=== PATIENT | female | born 1990 | race Caucasian/White ===

== ENCOUNTER 2016-02-24 06:29 | Emergency (ER) | payer MEDICAID ==
--- NOTE | 2016-02-24 06:44 | ER Document Report ---
ED GI/ - General Chief Complaint: Urinary Frequency Stated Complaint: URINARY SYMPTOMS Notes: The patient is a 25 showed female who presents with 1 day of left flank pain. She said she had similar symptoms when she last had a UTI and pyelonephritis. She says the pain is not affected by movement and she has no dysuria or hematuria. She has never had a kidney stone. She denies nausea, vomiting, fevers, abdominal pain TRAVEL OUTSIDE OF THE [place] IN LAST 30 DAYS: No - Related Data Allergies/Adverse Reactions: No Known Allergies Allergy (Verified 02/24/16 06:32) Past Medical History - General Information source: Patient - Social History Smoking Status: Unknown if Ever Smoked Family History: Reviewed & Not Pertinent Past Surgical History: Reports: Hx Tubal Ligation - Immunizations Hx Diphtheria, Pertussis, Tetanus Vaccination: Yes - 2010 Review of Systems - Review of Systems Notes: REVIEW OF SYSTEMS: CONSTITUTIONAL: -fevers, -chills EENT: -eye pain, -difficulty swallowing, -nasal congestion CARDIOVASCULAR:-chest pain, -syncope. RESPIRATORY: -cough, -SOB GASTROINTESTINAL: -abdominal pain, - nausea, -vomiting, -diarrhea GENITOURINARY: +dysuria, -hematuria MUSCULOSKELETAL: -back pain, -neck pain, _left flank pain SKIN: -rash or skin lesions. HEMATOLOGIC: -easy bruising or bleeding. LYMPHATIC: -swollen, enlarged glands. NEUROLOGICAL: -altered mental status or loss of consciousness, -headache, - neurologic symptoms PSYCHIATRIC: -anxiety, -depression. ALL OTHER SYSTEMS REVIEWED AND NEGATIVE. Physical Exam - Vital signs Vitals: Temp Pulse Resp BP Pulse Ox 97.7 F 81 16 132/69 H 100 02/24/16 06:33 02/24/16 06:33 02/24/16 06:33 02/24/16 06:33 02/24/16 06:33 - Notes Notes: PHYSICAL EXAMINATION: GENERAL: Moderate distress, well-nourished. HEAD: Atraumatic, normocephalic. EYES: Pupils equal round and reactive to light, extraocular movements intact, sclera anicteric, conjunctiva are normal. ENT: nares patent, oropharynx clear without exudates. Moist mucous membranes. NECK: Normal range of motion, supple without lymphadenopathy LUNGS: Breath sounds clear to auscultation bilaterally and equal. No wheezes rales or rhonchi. HEART: Regular rate and rhythm without murmurs ABDOMEN: Soft, nontender, normoactive bowel sounds. No guarding, no rebound. No masses appreciated. No CVA tenderness. EXTREMITIES: Normal range of motion, no pitting or edema. No cyanosis. NEUROLOGICAL: Cranial nerves grossly intact. Normal speech, normal gait. Normal sensory, motor, and reflex exams. PSYCH: Normal mood, normal affect. SKIN: Warm, Dry, normal turgor, no rashes or lesions noted. Course - Re-evaluation Re-evalutation: Patient has a 6 cm stone in the distal left ureter with moderate obstructive uropathy. No evidence of infection on urinalysis. Patient tolerating p.o. and her pain and nausea is under control. Because the stone is between 6 and 10 mm , will send home with Flomax, pain control and antinausea medicine with follow- up at urology in 1 week. Given strict return precautions and she understands. - Vital Signs Vital signs: Temp Pulse Resp BP Pulse Ox 97.7 F 81 16 132/69 H 100 02/24/16 06:33 02/24/16 06:33 02/24/16 06:33 02/24/16 06:33 02/24/16 06:33 - Laboratory Laboratory results interpreted by me: 02/24/16 06:55 Urine Blood SMALL H - Diagnostic Test Radiology reviewed: Image reviewed, Reports reviewed Radiology results interpreted by me: 6 mm calculus in the distal left ureter with moderate obstructive uropathy. Small nonobstructing calyceal calculi in the right kidney. No other significant or acute processes in the abdomen or pelvis. Discharge - Discharge Clinical Impression: Kidney stone on left side Condition: Good Disposition: HOME, SELF-CARE Additional Instructions: Your CAT scan shows a 6 mm stone on the left side. Take the Flomax and use Motrin every 6 hours and Percocet every 4 hours for severe pain. He may also use the Zofran to help with any nausea and vomiting. Return to the ER if you notice fevers or your unable to keep her medications down. Follow-up with the urologist in 1 week to recheck your symptoms. KIDNEY STONE: You are passing or have passed a kidney stone. These stones are usually due to increased calcium or uric acid concentrations in your urine. Stones within the kidney itself are not painful. The pain occurs as the stone leaves the kidney to pass down the long tube, called the ureter, leading to the bladder. If the stone is small, it will usually pass by itself. Most patients can pass the stone at home. You will usually receive medications for pain, nausea or vomiting, and sometimes a medication to assist in passing the kidney stone. However, if the pain is very severe or if vomiting prevents you from taking oral pain medications, you may need to return for further treatment. Drink three or four quarts of fluids per day. You will be given pain medication (if needed) and urine strainers. Strain all your urine to see if the stone passes. If your doctor has asked you to bring the stone in for analysis, return with the stone once it has passed. Return if pain or vomiting become severe, if you develop a high fever, if you are unable to pass your urine, or if other unusual symptoms occur. TORADOL INJECTION: You have been given an injection of ketorolac tromethamine (Toradol). This is an excellent, safe drug for pain control. It also has potent antiinflammatory action. You should have significant pain relief within about one hour. Toradol is not addicting and is non-sedating. It does not interfere with driving or work. Call or return if you develop itching, hives, shortness of breath, or rash. PAIN MEDICATION INJECTION: You have received an injection of a pain medication. You should experience significant pain relief within 45 minutes. This drug is a narcotic - - it will impair your judgement, slow your reaction time and make you sleepy ( as well as relieve your pain). Narcotics also can cause nausea. You should not drive, work with machinery, or perform any task requiring mental alertness until all effects of the medication are gone -- six to eight hours. Do not take any alcohol, or sedatives, and do not take any other medication without checking with your physician. ANTINAUSEA MEDICATION: You have been given a medication to suppress nausea and vomiting. This type of medication can be given as a shot, pill, or suppository. It will usually last for many hours. Pills and shots usually last six to eight hours, suppositories last about 12 hours. For the typical illness, only one or two doses of the medication may be necessary. Mild lightheadedness may occur. This type of medicine can cause drowsiness. Do not drive or operate dangerous machinery while under its influence. Do not mix with alcohol. See your doctor at once if you have muscle spasms or tightness, or uncontrollable motions (particularly of the neck, mouth, or jaw). Persistent vomiting or severe lightheadedness should also be evaluated by the physician. ORAL NARCOTIC MEDICATION: You have been given a prescription for pain control. This medication is a narcotic. It's best taken with food, as nausea can result if taken on an empty stomach. Don't operate machinery or drive within six hours of taking this medication. Do not combine this medicine with alcohol, or with any medication which can cause sedation (such as cold tablets or sleeping pills) unless you get permission from the physician. Narcotics tend to cause constipation. If possible, drink plenty of fluids and eat a diet high in fiber and fruits. Please be aware that prescription narcotics also have the potential for abuse. People become addicted to these medications because of the general sense of wellbeing that they induce. This feeling along with a significant reduction in tension, anxiety, and aggression provides a stimulating seductive quality to these drugs. Once your pain is under control, we encourage you to discard your unused narcotics. FLOMAX (tamsulosin): Flomax is a medicine that shrinks the prostate gland. It helps relieve symptoms of benign prostatic hypertrophy, such as frequent urination, weak stream, and inadequate emptying. It has been shown to dilate the ureter (tube leading from the kidney to the bladder) and help in passing kidney stones Flomax usually causes no side effects. You may notice slight tiredness and dizziness for a few days. Some patients develop nasal congestion. Rarely, impotence can occur. If the symptoms are bothersome and don't improve with continued use, call your doctor. Contact your doctor or return if you have fainting spells, severe weakness or dizziness, shortness of breath, or rash. FOLLOW-UP CARE: If you have been referred to a physician for follow-up care, call the physician s office for an appointment as you were instructed or within the next two days. If you experience worsening or a significant change in your symptoms, notify the physician immediately or return to the Emergency Department at any time for re-evaluation. Prescriptions: Ondansetron HCl [Zofran 4 mg Tablet] 1 - 2 tab PO Q4H PRN #14 tablet PRN Reason: Oxycodone HCl/Acetaminophen [Percocet 5-325 mg Tablet] 1 tab PO Q4H PRN #21 tab PRN Reason: Tamsulosin HCl [Flomax 0.4 mg Cap.sr] 0.4 mg PO DAILY #7 cap.sr.24h
[2016-02-24] MEDS ORDERED: ACETAMINOPHEN WITH CODEINE #3 TABLET PO ONE (06:53)
[2016-02-24] MEDS ORDERED: KETOROLAC TROMETHAMINE 10 MG TABLET PO ONE (06:53)
[2016-02-24] MEDS ORDERED: KETOROLAC TROMETHAMINE 60 MG/2 ML SDV IM ONE (07:08)
[2016-02-24 07:17] LABS: APPEARANCE,URINE SLIGHTLY-CLOUDY; BILIRUBIN,URINE NEGATIVE (NEGATIVE); GLUCOSE, URINE NEGATIVE (NEGATIVE); KETONES,URINE NEGATIVE (NEGATIVE); LEUKOCYTE ESTERASE,URINE NEGATIVE (NEGATIVE); NITRITE,URINE NEGATIVE (NEGATIVE); PROTEIN,URINE NEGATIVE (NEGATIVE); URINE SPECIFIC GRAVITY 1.016; UROBILINOGEN,URINE NEGATIVE mg/dL (<2.0)
[2016-02-24] MEDS ORDERED: MORPHINE SULFATE 10 MG/ML INJ IM ONE (09:13)
[2016-02-24 09:31] VITALS: BP 114/65
== END 2016-02-24 09:31 | disposition home or self-care (01) ==
LOC: ER 06:29
DX: N20.0 Calculus of kidney (principal); R35.0 Frequency of micturition
CPT/HCPCS: 99284; 96372; 81025; 81001; 74176; J1885; J2270

== ENCOUNTER 2016-03-01 03:06 | Inpatient (IN) | payer MEDICAID ==
[2016-03-01] MEDS ORDERED: NORMAL SALINE 1000 ML 1,000 ML IV ONE ×2 (03:32→06:06)
[2016-03-01] MEDS ORDERED: KETOROLAC TROMETHAMINE INJ/PF 30 MG/1 ML SDV IV ONE (03:33)
[2016-03-01] MEDS ORDERED: ONDANSETRON HCL INJ/PF 4 MG/2 ML SDV IV ONE ×2 (03:33→05:55)
[2016-03-01 04:14] LABS: ABSOLUTE EOSINOPHILS # (AUTO) 0.1 10^3/uL (0.0-0.6); ABSOLUTE LYMPHOCYTES (AUTO) 1.5 10^3/uL (0.5-4.7); ABSOLUTE MONOCYTES (AUTO) 0.3 10^3/uL (0.1-1.4); ABSOLUTE NEUT (AUTO) 2.8 10^3/uL (1.7-8.2); BASOPHILS % (AUTO) 0.4 % (0-2); EOSINOPHILS % (AUTO) 2.5 % (0-6); HEMATOCRIT 39.4 % (36.0-47.0); HEMOGLOBIN 12.8 g/dL (12.0-15.5); LYMPHOCYTES % (AUTO) 31.8 % (13-45); MEAN CORPUSCULAR HEMOGLOBIN 27.9 pg (27.0-33.4); MEAN CORPUSCULAR HGB CONC 32.6 g/dL (32.0-36.0); MEAN CORPUSCULAR VOLUME 86 fl (80-97); MONOCYTES % (AUTO) 7.2 % (3-13); SEGMENTED NEUTROPHILS % (AUTO) 58.1 % (42-78); WHITE BLOOD COUNT 4.8 10^3/uL (4.0-10.5)
[2016-03-01 04:27] LABS: ANION GAP 10 (5-19); BLOOD UREA NITROGEN 13 mg/dL (7-20); CALCIUM 9.7 mg/dL (8.4-10.2); CARBON DIOXIDE 31 mmol/L (22-30); CHLORIDE 102 mmol/L (98-107); CREATININE RESULT 0.75 mg/dL (0.52-1.25); GLUCOSE 98 mg/dL (75-110); POTASSIUM 4.1 mmol/L (3.6-5.0); SODIUM 142.5 mmol/L (137-145)
[2016-03-01] MEDS ORDERED: OXYCODONE-ACETAMINOPHEN 5-325 MG TABLET PO ONE (04:30)
[2016-03-01 05:31] LABS: AMORPHOUS SEDIMENT,URINE TRACE /HPF; APPEARANCE,URINE CLOUDY; BILIRUBIN,URINE NEGATIVE (NEGATIVE); GLUCOSE, URINE NEGATIVE (NEGATIVE); KETONES,URINE NEGATIVE (NEGATIVE); LEUKOCYTE ESTERASE,URINE NEGATIVE (NEGATIVE); NITRITE,URINE NEGATIVE (NEGATIVE); PROTEIN,URINE NEGATIVE (NEGATIVE); URINE SPECIFIC GRAVITY 1.019; UROBILINOGEN,URINE NEGATIVE mg/dL (<2.0)
[2016-03-01] MEDS ORDERED: MORPHINE SULFATE 10 MG/ML INJ IV ONE (05:55)
--- NOTE | 2016-03-01 05:55 | ER Document Report ---
ED General - General Chief Complaint: Flank Pain Stated Complaint: FLANK PAIN TRAVEL OUTSIDE OF THE [place] IN LAST 30 DAYS: No - HPI Patient complains to provider of: left flank Notes: Patient was diagnosed a 6 mm left distal kidney stone 5-7 days ago started on pain medication and Flomax states that she is not yet passed the stone and pain has increased therefore came to ER for further evaluation. Denies fevers chills. - Related Data Allergies/Adverse Reactions: No Known Allergies Allergy (Verified 02/24/16 06:32) Past Medical History - Social History Smoking Status: Never Smoker Chew tobacco use (# tins/day): No Drug Abuse: None Family History: Reviewed & Not Pertinent Patient has suicidal ideation: No Patient has homicidal ideation: No Renal/ Medical History: Reports: Hx Kidney Stones. Denies: Hx Peritoneal Dialysis Past Surgical History: Reports: Hx Tubal Ligation - Immunizations Hx Diphtheria, Pertussis, Tetanus Vaccination: Yes - 2010 Review of Systems - Review of Systems Constitutional: No symptoms reported EENT: No symptoms reported Cardiovascular: No symptoms reported Respiratory: No symptoms reported Gastrointestinal: No symptoms reported Genitourinary: Flank pain Female Genitourinary: No symptoms reported Musculoskeletal: No symptoms reported Skin: No symptoms reported Hematologic/Lymphatic: No symptoms reported Neurological/Psychological: No symptoms reported -: Yes All other systems reviewed and negative Physical Exam - Vital signs Vitals: Temp Pulse Resp BP Pulse Ox 97.5 F 107 H 20 143/90 H 100 03/01/16 03:11 03/01/16 03:11 03/01/16 03:11 03/01/16 03:11 03/01/16 03:11 Interpretation: Normal - General General appearance: Appears well, Alert - HEENT Head: Normocephalic, Atraumatic Eyes: Normal Pupils: PERRL - Respiratory Respiratory status: No respiratory distress Chest status: Nontender Breath sounds: Normal Chest palpation: Normal - Cardiovascular Rhythm: Regular Heart sounds: Normal auscultation Murmur: No - Abdominal Inspection: Normal Distension: No distension Bowel sounds: Normal Tenderness: Nontender Organomegaly: No organomegaly - Back Back: Normal, Nontender - Extremities General upper extremity: Normal inspection, Nontender, Normal color, Normal ROM , Normal temperature General lower extremity: Normal inspection, Nontender, Normal color, Normal ROM , Normal temperature, Normal weight bearing. No: Nu's sign - Neurological Neuro grossly intact: Yes Cognition: Normal Orientation: AAOx4 Malia Coma Scale Eye Opening: Spontaneous Malia Coma Scale Verbal: Oriented Malia Coma Scale Motor: Obeys Commands Hitchins Coma Scale Total: 15 Speech: Normal Motor strength normal: LUE, RUE, LLE, RLE Sensory: Normal - Psychological Associated symptoms: Normal affect, Normal mood - Skin Skin Temperature: Warm Skin Moisture: Dry Skin Color: Normal Course - Re-evaluation Re-evalutation: 03/01/16 05:35 Discussed KUB and previous CT findings with urology on-call currently waiting call back 03/01/16 06:11 Discuss with urology will have the patient good deal of her stent placement. Ancef IV fluids and nothing by mouth status ordered for patient. - Vital Signs Vital signs: Temp Pulse Resp BP Pulse Ox 97.5 F 97 16 116/57 L 100 03/01/16 03:11 03/01/16 04:46 03/01/16 04:46 03/01/16 04:46 03/01/16 04:46 - Laboratory Result Diagrams: 03/01/16 03:52 03/01/16 03:52 Laboratory results interpreted by me: 03/01/16 03/01/16 03:52 04:04 Carbon Dioxide 31 H Urine Ascorbic Acid 40 H Discharge - Discharge Clinical Impression: Kidney stone on left side Referrals: JIMMY THAYER MD [Primary Care Provider] - Follow up as needed
[2016-03-01] MEDS ORDERED: CEFAZOLIN 1 GM/D5W RTU 50 ML IV ONE (06:07)
[2016-03-01] MEDS ORDERED: FENTANYL CITRATE INJ/PF 100 MCG/2 ML AMPUL ONE ×3 (08:25→09:41)
[2016-03-01] MEDS ORDERED: PROPOFOL INJ 200 MG/20 ML VIAL IV ONE (08:26)
[2016-03-01] MEDS ORDERED: MIDAZOLAM 2 MG/2 ML INJ ONE (08:26)
[2016-03-01] MEDS ORDERED: LIDOCAINE 2% URO-JET 5 ML KIT ONE (08:37)
[2016-03-01] MEDS ORDERED: KETOROLAC TROMETHAMINE 60 MG/2 ML SDV ONE (08:51)
[2016-03-01] MEDS ORDERED: FENTANYL CITRATE INJ/PF 100 MCG/2 ML AMPUL IV PRN ×3 (09:32)
[2016-03-01] MEDS ORDERED: PROMETHAZINE HCL INJ 25 MG/1 ML VIAL IV PRN (09:32)
[2016-03-01] MEDS ORDERED: ONDANSETRON HCL INJ/PF 4 MG/2 ML SDV IV PRN (09:32)
--- NOTE | 2016-03-01 09:58 | HISTORY AND PHYSICAL E ---
History and Physical NAME: EMILY BLACK : 1990 AGE: 25Y ADMITTED: 03/01/2016 ROOM: ED12 CHIEF COMPLAINT: Left flank pain. HISTORY OF THE PRESENT ILLNESS: The patient is a 25-year-old lady who was seen in the emergency room 1 week ago for a 6-mm distal left ureteral calculus with obstruction. She was started on Flomax and given a prescription for Macrodantin, Zofran, and Percocet. She continued to have pain and presented again at the emergency room this morning. A KUB showed that the distal stone had not moved. The stone was located approximately 2 cm proximal to the UVJ. Her urine today did not appear infected. She did not have any fever or chills. She was having intractable pain, though. Various options for treatment: Admission with IV pain medicine or cystoscopy with insertion of a left ureteral stent and then discharge for further followup as an outpatient with left ureteroscopy with laser lithotripsy and removal of her stent were the 2 options that were discussed. Observation was not a viable option because she was having intractable pain. She elected to proceed with placement of a left ureteral stent. I discussed the potential complications of placing a stent which included but were not limited to bleeding, infection, failure to cure the problem, need for additional surgery, injury to the ureter, spasms requiring medication. She wished to proceed. Her social history, family history, review of systems, and past medical history are listed in the patient's ER chart, which I have reviewed and will not recount here. She has 3 children. ALLERGIES: She does have a reaction to ACETAMINOPHEN and develops itching when she takes this. CURRENT MEDICATIONS: She takes vitamins. PHYSICAL EXAMINATION: GENERAL: The patient is a 25-year-old white female in obvious distress. She is alert, oriented x3 with appropriate affect. HEAD, EYES, EARS, NOSE, THROAT, AND NECK: No scleral icterus is noted. Extraocular movements are intact. No facial lesions are noted. No lesions on the nose or external ear. Trachea is midline. CHEST: Clear to auscultation with normal respirations. HEART: Regular rhythm without murmur or gallop. GENITALIA: Appear normal. EXTREMITIES: Full range of motion. NEUROLOGIC: Intact. IMPRESSION: Impacted left distal ureteral stone. PLAN: Cystoscopy with insertion of left ureteral stent and then discharge for followup as an outpatient. DICTATING PHYSICIAN: NICOLETTE ZAVALA M.D. [id number] PHY#: [id number] ID: [id number] JOB#: [id number] ACCT: [id number] cc:Fany JACINTO M.D. >
--- NOTE | 2016-03-01 10:18 | OPERATIVE REPORT E ---
Operative Report NAME: MEILY BLACK : 1990 AGE: 25Y DATE OF SURGERY: 03/01/2016 ROOM: ED12 PREOPERATIVE DIAGNOSIS: IMPACTED LEFT DISTAL URETERAL CALCULUS. POSTOPERATIVE DIAGNOSIS: IMPACTED LEFT DISTAL URETERAL CALCULUS. OPERATION: Cystoscopy with insertion of 22 cm x 6-Belarusian Double-J catheter. SURGEON: NICOLETTE ZAVALA M.D. ROUTE PROCESS ADMINISTRATOR: None. SPECIMENS: None. ESTIMATED BLOOD LOSS: None. COMPLICATIONS: None. ANESTHESIA: Mac. INDICATIONS: The patient is a 25-year-old female with an impacted distal 6-mm left ureteral calculus. The various options for treatment as well as risks and benefits were discussed. A laser is not available at this time, therefore, she chose to proceed with cystoscopy and insertion of a left ureteral stent. She will follow up with Dr. Woodward as an outpatient to arrange left uteroscopy with laser lithotripsy and removal of her stent. PROCEDURE: After the patient was identified in the preop holding area, she was brought to the operating room. A timeout was performed where the correct patient, side of procedure and procedure was confirmed. Following this, she was given sedation. She was next carefully positioned in a dorsolithotomy position. All pressure points were padded. She was then prepped and draped in a routine sterile manner. A #23 obturator and sheath was inserted into the bladder. A panendoscope was used to examine the bladder which appeared normal. Attempt was made to pass a catheter beyond this stone which was not successful initially. A guidewire was threaded up the left ureter after which a 5-Belarusian open-ended catheter was used to manipulate this stone slightly more proximally and then it was possible to pass the catheter beyond the stone. Next, a 22 cm x 6-Belarusian Double-J catheter was positioned under fluoroscopic guidance with coiling of the catheter in the renal pelvis and bladder. The bladder was then emptied and the patient was returned to recovery room having tolerated this procedure well. PLAN: Followup with Dr. Vernon Woodward's office to arrange for left uteroscopy with laser lithotripsy and removal of a left ureteral stent. DICTATING PHYSICIAN: NICOLETTE ZAVALA M.D. [id number] Y#: [id number] ID: [id number] JOB#: [id number] ACCT: [id number] cc:Fany JACINTO M.D. >
[2016-03-01] MEDS ORDERED: OXYCODONE HCL IR 5 MG TABLET ONE (11:01)
[2016-03-01] MEDS ORDERED: ASPIRIN 325 MG TABLET ONE (11:01)
[2016-03-01] MEDS ORDERED: NORMAL SALINE 1000 ML 1,000 ML IV PRN (11:02)
[2016-03-01] MEDS ORDERED: ASPIRIN 325 MG TABLET PO ONE (11:30)
[2016-03-01] MEDS ORDERED: OXYCODONE HCL IR 5 MG TABLET PO ONE (11:30)
[2016-03-01 12:58] VITALS: BP 102/57
[2016-03-01] MEDS ORDERED: PHENAZOPYRIDINE HCL 200 MG TABLET PO ONE (13:00)
== END 2016-03-01 12:55 | disposition home or self-care (01) | DRG 694 ==
LOC: ER 03:06 → EH 06:26 → 2N 10:32
PROVIDERS: ATTEND Urology
PROC: 0T778DZ Dilation of Left Ureter with Intraluminal Device, Via Natural or Artificial Opening Endoscopic (ICD-10-PCS; principal; 2016-03-01 09:00)
DX: N20.1 Calculus of ureter (principal); Z98.51 Tubal ligation status; Z88.6 Allergy status to analgesic agent
CPT/HCPCS: 36415; 74000; 80048; 81001; 84703; 85025; 910; 96361; 96365; 96375; 96376; 99285; C1758; C1769; C2625; J0690; J1885; J2250; J2270; J2405; J2704; J3010; J3490; J7030

== ENCOUNTER 2016-03-06 22:36 | Inpatient (IN) | payer MEDICAID ==
[2016-03-07] MEDS ORDERED: MORPHINE SULFATE 10 MG/ML INJ IV ONE ×2 (00:09→01:29)
[2016-03-07] MEDS ORDERED: ONDANSETRON HCL INJ/PF 4 MG/2 ML SDV IV ONE (00:09)
--- NOTE | 2016-03-07 00:09 | ER Document Report ---
ED GI/ - General Mode of Arrival: Ambulatory Information source: Patient TRAVEL OUTSIDE OF THE [place] IN LAST 30 DAYS: No - HPI Patient complains to provider of: Flank pain Associated symptoms: Other - See above <DORI NAIK - Last Filed: 03/07/16 03:13> <AHSAN ROR - Last Filed: 03/07/16 03:42> - General Chief Complaint: Flank Pain Stated Complaint: LEFT FLANK PAIN Notes: Patient is a 25 year old female who presents to the emergency department complaining of left flank pain. Patient reports she had a kidney stent put in on 03/01 at this facility and has had constant pain since with no pain medication prescribed. Patient reports the pain radiates into her abdomen and her ribs where it is intermittent but is always constant in her lower left side and back. Patient also reports she has had clots in her urine which have subsided some since the procedure but are still present. Patient states she has been vomiting since the procedure and taking Zofran which sometimes helps. Patient denies fever. Patient is unsure if/what antibiotic she is on. Patient was told to have the stent removed after one week but got a call from [place] today and the told her to come in to the ED because of her pain. (DORI NAIK) - Related Data Allergies/Adverse Reactions: acetaminophen Adverse Reaction (Intermediate, Verified 03/06/16 23:15) Itching Past Medical History - General Information source: Patient - Social History Smoking Status: Never Smoker Chew tobacco use (# tins/day): No Frequency of alcohol use: Occasional Drug Abuse: None Family History: Reviewed & Not Pertinent Patient has suicidal ideation: No Patient has homicidal ideation: No Renal/ Medical History: Reports: Hx Kidney Stones Past Surgical History: Reports: Hx Tubal Ligation - Immunizations Hx Diphtheria, Pertussis, Tetanus Vaccination: Yes - 2010 <DORI NAIK - Last Filed: 03/07/16 03:13> Review of Systems - Review of Systems Constitutional: denies: Fever EENT: No symptoms reported Cardiovascular: No symptoms reported Respiratory: No symptoms reported Gastrointestinal: See HPI, Abdominal pain Genitourinary: See HPI, Flank pain, Hematuria Female Genitourinary: No symptoms reported Musculoskeletal: No symptoms reported Skin: No symptoms reported Hematologic/Lymphatic: No symptoms reported Neurological/Psychological: No symptoms reported -: Yes All other systems reviewed and negative <DORI NAIK - Last Filed: 03/07/16 03:13> Physical Exam - Vital signs Interpretation: Normal - General General appearance: Appears well, Alert - HEENT Head: Normocephalic, Atraumatic - Respiratory Respiratory status: No respiratory distress Chest status: Nontender Breath sounds: Normal Chest palpation: Normal - Cardiovascular Rhythm: Regular Heart sounds: Normal auscultation Murmur: No - Abdominal Inspection: Normal Distension: No distension Bowel sounds: Normal Tenderness: Tender - Right upper quadrant tenderness to palpation Organomegaly: No organomegaly - Back Back: Tender - Left flank tenderness to palpation - Extremities General upper extremity: Normal inspection, Normal ROM, Normal strength General lower extremity: Normal inspection, Normal ROM, Normal strength - Neurological Neuro grossly intact: Yes Cognition: Normal Orientation: AAOx4 Malia Coma Scale Eye Opening: Spontaneous Malia Coma Scale Verbal: Oriented Malia Coma Scale Motor: Obeys Commands Malia Coma Scale Total: 15 Speech: Normal Motor strength normal: LUE, RUE, LLE, RLE - Psychological Associated symptoms: Normal affect, Normal mood - Skin Skin Temperature: Warm Skin Moisture: Dry Skin Color: Normal <DORI NAIK - Last Filed: 03/07/16 03:13> Course - Laboratory Result Diagrams: 03/07/16 00:05 03/07/16 00:05 - Consults Dr. Mclean Time consulted: 03:10 - Dr. Mclean agrees to admit patient to his service <DORI NAIK - Last Filed: 03/07/16 03:13> - Laboratory Result Diagrams: 03/07/16 00:05 03/07/16 00:05 - Diagnostic Test Radiology reviewed: Image reviewed, Reports reviewed <AHSAN ORR - Last Filed: 03/07/16 03:42> - Re-evaluation Re-evalutation: 03/07/16 02:39 Patient is a [age] female who comes in complaining of left flank pain and also right upper quadrant pain. Patient has had increasing nausea. Patient has a ureteral stent that was placed for a 6 mm ureteral stone. KUB within normal limits. Patient does appear to have UTI. Patient was complaining of persistent right upper quadrant pain. Bilirubin is slightly elevated. Ultrasound is consistent with cholecystitis. Dr. Mclean was contacted and will admit the patient to his service. Patient was counseled on her ultrasound findings and need for admission and probable surgery. Understands and agrees with this plan. Stable at time of admission. (AHSAN ORR) - Vital Signs Vital signs: Temp Pulse Resp BP Pulse Ox 98.4 F 85 18 116/73 100 03/06/16 23:17 03/06/16 23:17 03/06/16 23:17 03/06/16 23:17 03/06/16 23:17 (DORI NAIK) (AHSAN ORR) - Laboratory Laboratory results interpreted by me: 03/07/16 03/07/16 00:05 00:35 Calcium 10.7 H Total Bilirubin 1.5 H Total Protein 8.5 H Albumin 5.3 H Urine Protein 100 H Urine Blood LARGE H Urine Nitrite POSITIVE H Urine Urobilinogen 4.0 H Ur Leukocyte Esterase MODERATE H (AHSAN ORR) Discharge <DORI NAIK - Last Filed: 03/07/16 03:13> - Discharge Admitting Provider: Surgicalist - [facility]3] Unit Admitted: Surgical Floor <AHSAN ORR - Last Filed: 03/07/16 03:42> - Discharge Clinical Impression: Kidney stone on left side, Cholecystitis UTI (urinary tract infection) Qualifiers: Urinary tract infection type: site unspecified Hematuria presence: with hematuria Qualified Code(s): N39.0 - Urinary tract infection, site not specified ; R31.9 - Hematuria, unspecified Condition: Stable Disposition: ADMITTED INPATIENT Referrals: JIMMY THAYER MD [Primary Care Provider] - Follow up as needed Scribe Attestation: 03/07/16 03:42 I personally performed the services described in the documentation, reviewed and edited the documentation which was dictated to the scribe in my presence, and it accurately records my words and actions. (AHSAN ORR) Scribe Documentation - Scribe Written by Yumiko:: yumiko Alan, 03/07/16, 0044 acting as scribe for :: [place] <DORI NAIK - Last Filed: 03/07/16 03:13>
[2016-03-07 00:14] LABS: ABSOLUTE EOSINOPHILS # (AUTO) 0.1 10^3/uL (0.0-0.6); ABSOLUTE LYMPHOCYTES (AUTO) 1.2 10^3/uL (0.5-4.7); ABSOLUTE MONOCYTES (AUTO) 0.4 10^3/uL (0.1-1.4); ABSOLUTE NEUT (AUTO) 2.5 10^3/uL (1.7-8.2); BASOPHILS % (AUTO) 0.5 % (0-2); EOSINOPHILS % (AUTO) 2.6 % (0-6); HEMATOCRIT 37.5 % (36.0-47.0); HEMOGLOBIN 12.5 g/dL (12.0-15.5); MEAN CORPUSCULAR HEMOGLOBIN 28.1 pg (27.0-33.4); MEAN CORPUSCULAR HGB CONC 33.5 g/dL (32.0-36.0); MEAN CORPUSCULAR VOLUME 84 fl (80-97); MONOCYTES % (AUTO) 8.6 % (3-13); RED BLOOD COUNT 4.46 10^6/uL (3.72-5.28); RED CELL DISTRIBUTION WIDTH 13.6 % (11.5-14.0); SEGMENTED NEUTROPHILS % (AUTO) 59.3 % (42-78); WHITE BLOOD COUNT 4.2 10^3/uL (4.0-10.5)
[2016-03-07 00:27] LABS: ALANINE AMINOTRANSFERASE 18 U/L (9-52); ALBUMIN 5.3 g/dL (3.5-5.0); ALKALINE PHOSPHATASE 95 U/L (38-126); ANION GAP 15 (5-19); ASPARTATE AMINO TRANSFERASE 23 U/L (14-36); BILIRUBIN,TOTAL 1.5 mg/dL (0.2-1.3); BLOOD UREA NITROGEN 12 mg/dL (7-20); CALCIUM 10.7 mg/dL (8.4-10.2); CARBON DIOXIDE 30 mmol/L (22-30); CHLORIDE 99 mmol/L (98-107); CREATININE RESULT 0.95 mg/dL (0.52-1.25); GLUCOSE 99 mg/dL (75-110); LIPASE 136.9 U/L (23-300); POTASSIUM 4.2 mmol/L (3.6-5.0); SODIUM 143.6 mmol/L (137-145); TOTAL PROTEIN 8.5 g/dL (6.3-8.2)
[2016-03-07 00:57] LABS: APPEARANCE,URINE SLIGHTLY-CLOUDY; BILIRUBIN,URINE NEGATIVE (NEGATIVE); GLUCOSE, URINE NEGATIVE (NEGATIVE); KETONES,URINE NEGATIVE (NEGATIVE); LEUKOCYTE ESTERASE,URINE MODERATE (NEGATIVE); NITRITE,URINE POSITIVE (NEGATIVE); PROTEIN,URINE 100 mg/dL (NEGATIVE); URINE SPECIFIC GRAVITY 1.013
[2016-03-07] MEDS ORDERED: CEFTRIAXONE 1 GM/D5W RTU 50 ML IV ONE (01:26)
[2016-03-07] MEDS ORDERED: NORMAL SALINE 1000 ML 1,000 ML IV ONE ×2 (01:26→06:01)
[2016-03-07] MEDS ORDERED: HYDROMORPHONE HCL INJ/PF 2 MG/ML AMPULE IV ONE ×2 (03:09→04:52)
[2016-03-07] MEDS ORDERED: PIPERACILLIN/TAZOBACTAM 3.375 GM VIAL IV ONE (03:11)
[2016-03-07] MEDS ORDERED: HYDROMORPHONE HCL INJ/PF 2 MG/ML AMPULE IV PRN (06:00)
[2016-03-07] MEDS ORDERED: ONDANSETRON HCL INJ/PF 4 MG/2 ML SDV IV PRN ×2 (08:23→12:28)
[2016-03-07] MEDS: RINGERS SOLUTION,LACTATED 1,000 ML IV PRN (09:11)
[2016-03-07] MEDS: HYDROMORPHONE HCL INJ/PF 2 MG/ML AMPULE IV PRN ×5 (09:11→22:08)
[2016-03-07] MEDS: FAMOTIDINE INJ/PF 20 MG/2 ML SDV IV SCH ×2 (09:11→22:08)
[2016-03-07] MEDS: KETOROLAC TROMETHAMINE INJ/PF 30 MG/1 ML SDV IV PRN ×2 (10:30→18:31)
--- NOTE | 2016-03-07 11:08 | PDOC CONSULTATION ---
Consultation Consult Date: 03/07/16 Attending physician:: BRENNEN BARNEY Consult reason:: Ureterolithiasis History of Present Illness Admission Date/PCP: 03/07/16 04:01 JIMMY THAYER MD Patient complains of: Patient presented on March 01 renal colic and underwent cystoscopy with stent placement. Follow-up with a local urologist for ureteroscopy and stone retrieval was suggested but this has not been done yet. Patient has bladder spasms. She also has gallstones with biliary colic and Dr. Arec plans on cholecystectomy later today. History of Present Illness: EMILY BLACK is a 25 year old female Past Surgical History Past Surgical History: Reports: Tubal Ligation Social History Smoking Status: Never Smoker Frequency of Alcohol Use: Occasional Hx Recreational Drug Use: No Drugs: None Hx Prescription Drug Abuse: No Family History Family History: Reviewed & Not Pertinent Parental Family History Reviewed: No - not done Children Family History Reviewed: No Sibling(s) Family History Reviewed.: No Medication/Allergy Home Medications: No Home Medications 03/01/16 Allergies/Adverse Reactions: acetaminophen Adverse Reaction (Intermediate, Verified 03/06/16 23:15) Itching Physical Exam Vital Signs: Temp Pulse Resp BP Pulse Ox 97.4 F 60 16 119/54 L 100 03/07/16 10:38 03/07/16 10:38 03/07/16 10:38 03/07/16 10:38 03/07/16 10:38 Intake & Output 03/06/16 03/07/16 03/08/16 06:59 06:59 06:59 Weight 60.1 kg Results Impressions: KUB X-Ray 03/07/16 00:22 IMPRESSION: Redemonstration of 6 mm calcification in the left pelvis, along the distal left ureteral stent, probably corresponding to the previously described distal ureteral calculus. Right nephrolithiasis. Abdomen Ultrasound 03/07/16 01:29 IMPRESSION: Cholelithiasis with a positive sonographic Esquivel's sign and gallbladder wall thickening, suggestive of acute calculous cholecystitis. Assessment & Plan - Diagnosis (1) Kidney stone on left side Is this a current diagnosis for this admission?: Yes - Plan Summary Plan Summary: Patient will need to follow-up except week with Dr. All Crespo at [facility] to schedule ureteroscopy and tone retrieval. Patient also be prescribed Vesicare 5 mg daily or Detrol LA 2 mg daily for bladder spasms.
[2016-03-07] MEDS: PIPERACILLIN SODIUM/TAZOBACTAM 3.375 GM in NORMAL SALINE 100 ML IV SCH ×3 (11:20→23:28)
[2016-03-07] MEDS ORDERED: DEXAMETHASONE SOD PHOSPHATE INJ 4 MG/1 ML VIAL ONE (11:22)
[2016-03-07] MEDS ORDERED: ONDANSETRON HCL INJ/PF 4 MG/2 ML SDV ONE (11:22)
[2016-03-07] MEDS ORDERED: PROPOFOL INJ 200 MG/20 ML VIAL IV ONE (11:22)
[2016-03-07] MEDS ORDERED: FENTANYL CITRATE INJ/PF 250 MCG/5 ML AMPULE ONE (11:22)
[2016-03-07] MEDS ORDERED: MIDAZOLAM 2 MG/2 ML INJ ONE (11:22)
[2016-03-07] MEDS ORDERED: MORPHINE SULFATE 10 MG/ML INJ ONE (11:24)
[2016-03-07] MEDS ORDERED: BUPIVACAINE HCL 0.5 % INJ/PF 30 ML SDV ONE (11:26)
--- NOTE | 2016-03-07 11:29 | HISTORY AND PHYSICAL E ---
History and Physical NAME: EMILY BLACK : 1990 AGE: 25Y ADMITTED: 03/07/2016 ROOM: 530 REASON FOR ADMISSION: Right upper quadrant secondary to cholelithiasis. HISTORY OF PRESENT ILLNESS: This 25-year-old female presented to the emergency room complaining of a 5-day history of intermittent right upper quadrant pain with associated nausea and vomiting. The patient was seen here approximately 5 days ago, because of nephrolithiasis and underwent placement of a ureteral stent. The patient was told to come back to the clinic in a week for followup. However, in the interim, starting the same day as stent was placed, she developed right upper quadrant pain. The patient does admit to postprandial bloating and gaseousness, indigestion an early satiety. The pain was intermittent and not associated with food, but given that it increased in intensity and was 8/10, the patient presented to our emergency room. The patient had stable vital signs on presentation and on examination, she was found to have right upper quadrant tenderness without guarding or rebound, and a positive Esquivel's sign. The patient underwent laboratory evaluation and was found to have mildly elevated bilirubin at 1.5 and mild elevation of her ALT and AST. However, the patient again underwent an ultrasound, which showed cholelithiasis and gallbladder wall thickening without pericholecystic fluid. For this reason, the patient was admitted to the hospital. PAST MEDICAL HISTORY: The patient has no history of diabetes mellitus, hypertension, cardiac, pulmonary, liver disease or bleeding tendency. No history of anesthesia problems in the family. PAST SURGICAL HISTORY: The patient had a tubal ligation approximately 2 years ago. ALLERGIES: None. SOCIAL HISTORY: The patient drinks alcohol occasionally, denies tobacco use or illicit drugs. REVIEW OF SYSTEMS: The patient has no symptoms referable to the constitutional, ENT, respiratory, cardiovascular systems. GI symptoms as in the history of present illness. Genitourinary symptoms as in the history of present illness. The patient denies any symptoms referable to the extremities, lymphatic, integumentary, psychiatric, or endocrine systems. PHYSICAL EXAMINATION: GENERAL: Examination reveals a 25-year-old female who is thin, normally nourished, normally developed, who is in no acute distress. VITAL SIGNS: Noted and stable. HEENT: There is no conjunctival pallor or scleral icterus. Mucous membranes are moist and pink. NECK: Supple without nodes, thyroid masses, JVD or bruit and trachea is midline. CHEST: Chest wall shows good excursions. LUNGS: Clear anteriorly with good entry. CARDIOVASCULAR: Pulses regular without murmurs or gallops. ABDOMEN: Soft and flat with mild right upper quadrant tenderness with no guarding. There is positive Esquivel's sign. There is no organomegaly or masses. No hernias or bruits noted. EXTREMITIES: Full range of motion. IMPRESSION: 1. Cholelithiasis causing biliary colic. 2. Chronic cholecystitis. 3. The patient is also status post ureteral stent insertion for nephrolithiasis. PLAN: Patient to be scheduled for laparoscopic cholecystectomy today followed by evaluation by the urologist, who has been called to determine whether the stents should be removed. DICTATING PHYSICIAN: BRENNEN BARNEY M.D. [id number] PHY#: [id number] ID: [id number] JOB#: [id number] ACCT: [id number] cc:BRENNEN BARNEY M.D. >
[2016-03-07] MEDS ORDERED: SUCCINYLCHOLINE CHLORIDE INJ 200 MG/10 ML VIAL ONE (12:02)
[2016-03-07] MEDS ORDERED: ROCURONIUM BROMIDE INJ 50 MG/5 ML VIAL IV ONE (12:02)
[2016-03-07] MEDS ORDERED: MEPERIDINE HCL/PF INJ 25 MG/1 ML DISP.SYRIN IV PRN (12:28)
[2016-03-07] MEDS ORDERED: PROMETHAZINE HCL INJ 25 MG/1 ML VIAL IV PRN ×2 (12:28)
[2016-03-07] MEDS ORDERED: DIPHENHYDRAMINE HCL 50 MG/ML VIAL IV PRN (12:28)
[2016-03-07] MEDS ORDERED: FENTANYL CITRATE INJ/PF 100 MCG/2 ML AMPUL IV PRN ×3 (12:28)
[2016-03-07] MEDS ORDERED: MORPHINE SULFATE 10 MG/ML INJ IV PRN (12:28)
--- NOTE | 2016-03-07 13:42 | Brief Operative Note ---
BRIEF OPERATIVE REPORT DATE OF SURGERY: 03/07/16 TIME OF SURGERY: 12:00 PREOPERATIVE DIAGNOSIS: Cholelithiasis POSTOPERATIVE DIAGNOSIS: Same with chronic chloecystitis SURGEON: BRENNEN BARNEY 1ST NEEDLE POLISHER: Christel Hanson FINDINGS: Cholelithisis with Chronic Cholecystitis COMPLICATIONS: None ESTIMATED BLOOD LOSS: 10cc TISSUE REMOVED OR ALTERED: Gall Bladder with contents TECHNICAL PROCEDURE: See Operative report
--- NOTE | 2016-03-07 14:18 | OPERATIVE REPORT E ---
Operative Report NAME: EMILY BLACK : 1990 AGE: 25Y DATE OF SURGERY: 03/07/2016 ROOM: 530 PREOPERATIVE DIAGNOSIS: Cholelithiasis with biliary colic. POSTOPERATIVE DIAGNOSES: Cholelithiasis with biliary colic and chronic cholecystitis. PROCEDURE: Laparoscopic cholecystectomy. SURGEON: BRENNEN BARNEY M.D. ANESTHESIA: General. REPLACEMENT: Crystalloid. DRAINS: None. COMPLICATIONS: None. CONDITION: Stable. FINDINGS: The patient had evidence of cholelithiasis and evidence of chronic cholecystitis with thickening of the gallbladder wall and adhesions between the omentum and the gallbladder. INDICATIONS FOR PROCEDURE: This 25-year-old female presented to the emergency room complaining of abdominal pain. Patient was found to have multiple stones in the gallbladder and was brought to the operating for definitive intervention. PROCEDURE: The patient was brought to the operating suite and placed in the supine position on the operating room table. Monitoring devices were attached. IV sedation was administered followed by the induction of general endotracheal anesthesia. Time out was achieved and after all concurred, Marcaine was injected just below the umbilicus. The incision was carried through the skin and subcutaneous tissue down to the linea alba. Two 0-Vicryl stay sutures were placed in the linea alba and an incision was made between the two stay sutures. The peritoneum was grasped and opened, and the abdominal cavity was entered. There was no evidence of any bleeding or trauma to the underlying viscera. We inserted the Omar trocar and secured it with two 0-Vicryl stay sutures and then insufflation was performed followed by insertion of the endoscopic camera and light source. We surveyed the abdominal cavity and found no evidence of any injury or bleeding. We then placed the remaining three trocars in the usual anatomic positions and grasped the gallbladder, retracting over the liver. The adhesions between the omentum and the infundibulum of the gallbladder were taken down using sharp and blunt dissection. Once this was done, we began dissecting Calot's triangle, isolating and skeletonizing the cystic duct and cystic artery. Once both of these were identified and skeletonized, we placed hemoclips on the cystic duct close to the gallbladder and on the cystic artery close to the gallbladder and divided it between the clips. We then dissected the gallbladder off the liver using reticulating scissors and cautery. Once this was completed, we placed the gallbladder in the Endobag and removed it from the abdominal cavity. We then checked the gallbladder bed for adequate hemostasis and once hemostasis was achieved by cauterizing the gallbladder bed, we then placed our 0-Vicryl tie at the upper abdominal *------* trocar site using the Zak-Fabiola device. Once this was done, we removed this trocar and tied our ties at this level. We then removed all trocars under direct vision, decompressed the abdomen, and removed all trocars. We then closed the infraumbilical incision using interrupted 0-Vicryl stay sutures on the UR6 needle and once this was done, all skin incisions were approximated using skin ivone. The patient tolerated the procedure well. Sponge and instrument count was correct. The patient was discharged to the PACU in stable condition. DICTATING PHYSICIAN: BRENNEN BARNEY M.D. [id number] PHY#: [id number] ID: [id number] JOB#: [id number] ACCT: [id number] cc:BRENNEN BARNEY M.D. >
--- NOTE | 2016-03-07 14:43 | OPERATIVE REPORT E ---
Operative Report NAME: EMILY BLACK : 1990 AGE: 25Y DATE OF SURGERY: 03/07/2016 ROOM: 530 ADDENDUM: The previous dictation was on this patient not . I repeat, the previous dictation of the operative summary was on this patient. DICTATING PHYSICIAN: BRENNEN BARNEY M.D. [id number] PHY#: [id number] ID: [id number] JOB#: [id number] ACCT: [id number] cc:BRENNEN BARNEY M.D. >
[2016-03-07] MEDS: IBUPROFEN 800 MG TABLET PO PRN ×2 (15:30→23:28)
[2016-03-07] MEDS: TOLTERODINE TARTRATE 1 MG TABLET PO SCH (22:08)
[2016-03-08] MEDS: HYDROMORPHONE HCL INJ/PF 2 MG/ML AMPULE IV PRN ×6 (00:47→12:12)
[2016-03-08] MEDS: RINGERS SOLUTION,LACTATED 1,000 ML IV PRN (02:46)
[2016-03-08] MEDS: PIPERACILLIN SODIUM/TAZOBACTAM 3.375 GM in NORMAL SALINE 100 ML IV SCH ×4 (05:03→23:06)
[2016-03-08] MEDS: KETOROLAC TROMETHAMINE INJ/PF 30 MG/1 ML SDV IV PRN (08:16)
[2016-03-08] MEDS: IBUPROFEN 800 MG TABLET PO PRN ×2 (09:11→21:40)
[2016-03-08] MEDS: TOLTERODINE TARTRATE 1 MG TABLET PO SCH ×2 (09:11→21:31)
[2016-03-08] MEDS: FAMOTIDINE INJ/PF 20 MG/2 ML SDV IV SCH ×2 (09:12→21:31)
[2016-03-08] MEDS: OXYCODONE-ACETAMINOPHEN 5-325 MG TABLET PO PRN ×3 (14:29→23:03)
[2016-03-08] MEDS: DIPHENHYDRAMINE HCL 25 MG CAPSULE PO PRN ×2 (14:29→23:02)
--- NOTE | 2016-03-08 20:03 | PROGRESS NOTE E ---
Progress Note NAME: EMILY BLACK : 1990 AGE: 25Y DATE: 03/08/2016 ROOM: 530 SUBJECTIVE: The patient is complaining of incisional pain and shoulder pain post laparoscopic cholecystectomy. OBJECTIVE: VITAL SIGNS: Blood pressure was 166/57. Temperature 98.4. Pulse 78. Respirations 16. Saturation is 99%. ABDOMEN: Patient's abdomen is soft. Bowel sounds are present. There is mild incisional tenderness. There is no guarding or rebound. The patient is tolerating her regular diet well. ASSESSMENT: POSTOPERATIVE DAY #1 STATUS POST LAPAROSCOPIC CHOLECYSTECTOMY. PLAN: The patient will be taken off Dilaudid and will be started Percocet. She will be given Benadryl for the itching secondary to the Percocet as she has agreed to, and the patient will be hopefully discharged in the a.m. DICTATING PHYSICIAN: BRENNEN BARNEY M.D. [id number] PHY#: [id number] ID: [id number] JOB#: [id number] ACCT: [id number] cc: >
[2016-03-09] MEDS: RINGERS SOLUTION,LACTATED 1,000 ML IV PRN (02:41)
[2016-03-09] MEDS: OXYCODONE-ACETAMINOPHEN 5-325 MG TABLET PO PRN ×3 (02:44→12:22)
[2016-03-09] MEDS: PIPERACILLIN SODIUM/TAZOBACTAM 3.375 GM in NORMAL SALINE 100 ML IV SCH ×2 (05:28→11:56)
[2016-03-09] MEDS: DIPHENHYDRAMINE HCL 25 MG CAPSULE PO PRN (08:33)
[2016-03-09] MEDS: TOLTERODINE TARTRATE 1 MG TABLET PO SCH (11:44)
[2016-03-09] MEDS: FAMOTIDINE INJ/PF 20 MG/2 ML SDV IV SCH (11:45)
--- NOTE | 2016-03-09 11:50 | PDOC DISCHARGE SUMMARY ---
General - Admit/Disc Date/PCP Admission Date/Primary Care Provider: 03/07/16 04:00 JIMMY THAYER MD Discharge Date: 03/09/16 - Discharge Diagnosis (1) Cholecystitis Is this a current diagnosis for this admission?: Yes (2) Status post laparoscopic cholecystectomy Is this a current diagnosis for this admission?: YesSummary: The patient 25-year-old white female admitted to the surgical service for acute abdominal pain. She was evaluated and found biopsy mammography to have gallstones. On IV fluids and taken to the operating room by Dr.Kyron Mclean on 03/07/2016. She tolerated the operation well and had no complication Her preoperative evaluation revealed left nephrolithiasis. She is asymptomatic at this time. She will require further evaluation and treatment. - Additional Information Discharge Diet: Regular Home Medications: Oxycodone HCl/Acetaminophen [Percocet 5-325 mg Tablet] 1 tab PO ASDIR PRN #25 tab 03/09/16 History of Present Illness History of Present Illness: EMILY BLACK is a 25 year old female Hospital Course Hospital Course: See above Physical Exam Vital Signs: Temp Pulse Resp BP Pulse Ox 99.3 F 83 16 121/70 99 03/09/16 08:00 03/09/16 08:00 03/09/16 08:00 03/09/16 08:00 03/09/16 08:00 Intake & Output 03/08/16 03/09/16 03/10/16 06:59 06:59 06:59 Intake Total 4080 3734 Output Total 350 Balance 3730 3734 Weight 60 kg Results Impressions: KUB X-Ray 03/07/16 00:22 IMPRESSION: Redemonstration of 6 mm calcification in the left pelvis, along the distal left ureteral stent, probably corresponding to the previously described distal ureteral calculus. Right nephrolithiasis. Abdomen Ultrasound 03/07/16 01:29 IMPRESSION: Cholelithiasis with a positive sonographic Esquivel's sign and gallbladder wall thickening, suggestive of acute calculous cholecystitis. Qualifiers PATEINT BEING DISCHARGED WITH ANY OF THE FOLLOWING DIAGNOSIS?: No Plan Time Spent: Less than 30 Minutes
[2016-03-09 12:51] VITALS: BP 119/54
== END 2016-03-09 13:37 | disposition home or self-care (01) | DRG 418 ==
LOC: ER 22:36 → EH 03-07 04:00 → UNDOADMIN 03-07 04:01 → EH 03-07 04:01 → 5 03-07 06:44
PROVIDERS: ADMIT Surgery; ATTEND Surgery
PROC: 0FT44ZZ Resection of Gallbladder, Percutaneous Endoscopic Approach (ICD-10-PCS; principal; 2016-03-07 12:00)
DX: K80.12 Calculus of gallbladder with acute and chronic cholecystitis without obstruction (principal); N39.0 Urinary tract infection, site not specified; N20.0 Calculus of kidney; R31.9 Hematuria, unspecified; Z88.6 Allergy status to analgesic agent
CPT/HCPCS: 36415; 74000; 76705; 790; 80053; 81001; 81025; 83690; 85025; 87086; 88304; J0330; J0696; J1100; J1170; J1885; J2250; J2270; J2405; J2543; J2704; J3010; J3490; J7030; J7120; S0028

== ENCOUNTER 2016-03-16 10:37 | Emergency (ER) | payer MEDICAID ==
--- NOTE | 2016-03-16 11:03 | ER Document Report ---
ED Medical Screen (RME) - General Stated Complaint: SIDE PAIN Notes: onset: 03/01/2016 left ureter stent placed by urology at [place] for a kidney stone has pink urine needs referral to urology I have greeted and performed a rapid initial assessment of this patient. A comprehensive ED assessment and evaluation of the patient, analysis of test results and completion of the medical decision making process will be conducted by additional ED providers. TRAVEL OUTSIDE OF THE [place] IN LAST 30 DAYS: No - Related Data Allergies/Adverse Reactions: acetaminophen Adverse Reaction (Intermediate, Verified 03/06/16 23:15) Itching Past Medical History Renal/ Medical History: Reports: Hx Kidney Stones. Denies: Hx Peritoneal Dialysis Past Surgical History: Reports: Hx Tubal Ligation - Immunizations Hx Diphtheria, Pertussis, Tetanus Vaccination: Yes - 2010 Physical Exam - Vital signs Vitals: Temp Pulse Resp BP Pulse Ox 98.0 F 103 H 18 151/82 H 100 03/16/16 10:58 03/16/16 10:58 03/16/16 10:58 03/16/16 10:58 03/16/16 10:58 Course - Vital Signs Vital signs: Temp Pulse Resp BP Pulse Ox 98.0 F 103 H 18 151/82 H 100 03/16/16 10:58 03/16/16 10:58 03/16/16 10:58 03/16/16 10:58 03/16/16 10:58
[2016-03-16] MEDS ORDERED: OXYCODONE-ACETAMINOPHEN 5-325 MG TABLET PO ONE (11:04)
[2016-03-16 11:41] LABS: ABSOLUTE EOSINOPHILS # (AUTO) 0.1 10^3/uL (0.0-0.6); ABSOLUTE LYMPHOCYTES (AUTO) 1.2 10^3/uL (0.5-4.7); ABSOLUTE MONOCYTES (AUTO) 0.3 10^3/uL (0.1-1.4); ABSOLUTE NEUT (AUTO) 3.3 10^3/uL (1.7-8.2); BASOPHILS % (AUTO) 0.3 % (0-2); EOSINOPHILS % (AUTO) 1.2 % (0-6); HEMATOCRIT 37.9 % (36.0-47.0); HEMOGLOBIN 12.6 g/dL (12.0-15.5); HGB HCT DIFFERENCE -0.1; LYMPHOCYTES % (AUTO) 24.2 % (13-45); MEAN CORPUSCULAR HEMOGLOBIN 27.6 pg (27.0-33.4); MEAN CORPUSCULAR HGB CONC 33.1 g/dL (32.0-36.0); MEAN CORPUSCULAR VOLUME 83 fl (80-97); MONOCYTES % (AUTO) 7.1 % (3-13); RED BLOOD COUNT 4.55 10^6/uL (3.72-5.28); RED CELL DISTRIBUTION WIDTH 13.3 % (11.5-14.0); SEGMENTED NEUTROPHILS % (AUTO) 67.2 % (42-78); WHITE BLOOD COUNT 4.9 10^3/uL (4.0-10.5)
[2016-03-16 11:49] LABS: APPEARANCE,URINE CLOUDY; BILIRUBIN,URINE NEGATIVE (NEGATIVE); GLUCOSE, URINE NEGATIVE (NEGATIVE); KETONES,URINE NEGATIVE (NEGATIVE); LEUKOCYTE ESTERASE,URINE MODERATE (NEGATIVE); NITRITE,URINE NEGATIVE (NEGATIVE); PROTEIN,URINE 100 mg/dL (NEGATIVE); URINE SPECIFIC GRAVITY 1.021; UROBILINOGEN,URINE NEGATIVE mg/dL (<2.0)
[2016-03-16 12:02] LABS: ALANINE AMINOTRANSFERASE 30 U/L (9-52); ALBUMIN 4.7 g/dL (3.5-5.0); ALKALINE PHOSPHATASE 94 U/L (38-126); ANION GAP 15 (5-19); ASPARTATE AMINO TRANSFERASE 23 U/L (14-36); BILIRUBIN,TOTAL 1.4 mg/dL (0.2-1.3); BLOOD UREA NITROGEN 15 mg/dL (7-20); CALCIUM 10.4 mg/dL (8.4-10.2); CARBON DIOXIDE 29 mmol/L (22-30); CHLORIDE 98 mmol/L (98-107); CREATININE RESULT 0.76 mg/dL (0.52-1.25); GLUCOSE 125 mg/dL (75-110); SODIUM 141.6 mmol/L (137-145); TOTAL PROTEIN 8.7 g/dL (6.3-8.2)
[2016-03-16] MEDS ORDERED: NORMAL SALINE 1000 ML 1,000 ML IV PRN (12:17)
[2016-03-16] MEDS ORDERED: HYDROMORPHONE HCL INJ/PF 2 MG/ML AMPULE IV ONE ×3 (12:17→15:47)
--- NOTE | 2016-03-16 12:17 | ER Document Report ---
ED GI/ - General Chief Complaint: Flank Pain Stated Complaint: SIDE PAIN Time seen by provider: 12:16 Mode of Arrival: Ambulatory Information source: Patient Notes: This is a 25-year-old female with a history of kidney stones (diagnosed with an impacted distal 6 mm left ureter calculus) status post left ureteroscopy with insertion of a left ureter stent (03/01/2016). The follow-up for the patient was to include laser lithotripsy with removal of the left ureter stent. The patient presents to the emergency room with worsening left flank pain over the last 3 days along with low-grade fevers (99.8). TRAVEL OUTSIDE OF THE [place] IN LAST 30 DAYS: No - HPI Patient complains to provider of: Flank pain Onset: Last week Timing/Duration: Gradual Quality of pain: Dull Severity at maximum: Moderate Severity in ED: Moderate Pain Level: 3 Context: denies: Bad food, Lifting, Out of the country travel, , Recent trauma, Other Vaginal bleeding (Compared to normal period): None Sexual history: Active Associated symptoms: Nausea. denies: Chest pain, Shortness of breath Exacerbated by: Denies Relieved by: Denies Similar symptoms previously: Yes Recently seen / treated by doctor: Yes - Related Data Allergies/Adverse Reactions: acetaminophen Adverse Reaction (Intermediate, Verified 03/16/16 11:01) Itching Past Medical History - General Information source: Patient - Social History Smoking Status: Never Smoker Cigarette use (# per day): No Chew tobacco use (# tins/day): No Frequency of alcohol use: None Drug Abuse: None Lives with: Family Family History: Reviewed & Not Pertinent Patient has suicidal ideation: No Patient has homicidal ideation: No - Medical History Medical History: Negative Renal/ Medical History: Reports: Hx Kidney Stones. Denies: Hx Peritoneal Dialysis Past Surgical History: Reports: Hx Tubal Ligation - Immunizations Hx Diphtheria, Pertussis, Tetanus Vaccination: Yes - 2010 Review of Systems - Review of Systems Constitutional: denies: Chills, Fever EENT: No symptoms reported Cardiovascular: No symptoms reported Respiratory: No symptoms reported Gastrointestinal: See HPI Genitourinary: No symptoms reported Female Genitourinary: No symptoms reported Musculoskeletal: No symptoms reported Skin: No symptoms reported Hematologic/Lymphatic: No symptoms reported Neurological/Psychological: No symptoms reported Physical Exam - Vital signs Vitals: Temp Pulse Resp BP Pulse Ox 98.0 F 103 H 18 151/82 H 100 03/16/16 10:58 03/16/16 10:58 03/16/16 10:58 03/16/16 10:58 03/16/16 10:58 Notes: Physical exam: GENERAL: 25-year-old female, alert and oriented 3, moderate distress. HEAD: Atraumatic, normocephalic. EYES: Pupils equal round and reactive to light, extraocular movements intact, sclera anicteric, conjunctiva are normal. ENT: TMs normal, nares patent, oropharynx clear without exudates. Moist mucous membranes. NECK: Normal range of motion, supple without lymphadenopathy or JVD. LUNGS: Breath sounds clear to auscultation bilaterally and equal. No wheezes rales or rhonchi. HEART: Regular rate and rhythm without murmurs, rubs or gallops. ABDOMEN: Soft, left CVA tenderness, normoactive bowel sounds. The patient had recent lap cholecystectomy (one week ago) with ivone still in place, No guarding, no rebound. No masses appreciated. EXTREMITIES: Normal range of motion, no pitting or edema. No clubbing or cyanosis. NEUROLOGICAL: Cranial nerves II through XII grossly intact. Normal speech, normal gait. PSYCH: Normal mood, normal affect. SKIN: Warm, Dry, normal turgor, no rashes or lesions noted. Course - Re-evaluation Re-evalutation: 03/16/16 16:37 I did discuss the case with Dr. All Crespo who is covering for urology and will be working out of Dr. Valenzuela's office. We did discuss the ultrasound and KUB as well as the lab results. He did recommend some outpatient antibiotics but said the urine findings could be from the stent itself. He recommended follow-up in the urology clinic. He did take the patient's name and contact information in order to facilitate the process. I did speak to Dr. Owusu: The patient was due and surgical clinic today for staple removal for her recent cholecystectomy. The wound site looks very good. We took the ivone out in the emergency room and I have told the patient to continue to use some Neosporin over the wound site. Patient was given IV fluids. Ultrasound showed no evidence of hydronephrosis or renal obstruction. The KUB showed a stable left ureteral stent with the 6 mm stone. 03/16/16 18:52 - Vital Signs Vital signs: Temp Pulse Resp BP Pulse Ox 98.0 F 71 14 115/69 99 03/16/16 17:12 03/16/16 17:12 03/16/16 17:12 03/16/16 17:12 03/16/16 17:12 - Laboratory Result Diagrams: 03/16/16 11:12 03/16/16 11:12 Laboratory results interpreted by me: 03/16/16 03/16/16 11:12 11:12 Glucose 125 H Calcium 10.4 H Total Bilirubin 1.4 H Total Protein 8.7 H Urine Protein 100 H Urine Blood LARGE H Ur Leukocyte Esterase MODERATE H - Diagnostic Test Radiology reviewed: Image reviewed, Reports reviewed - KUB shows stable left ureter stent. Ultrasound shows no hydronephrosis. Discharge - Discharge Clinical Impression: flank pain, staple removal Condition: Stable Disposition: HOME, SELF-CARE Instructions: Oral Narcotic Medication ([facility]) Additional Instructions: Recommendations: Call the urology office tomorrow afternoon: Tell them that the ER doctor at spoken to Dr. All Crespo were taken your information down. Dr. Crespo said that the stent would need to come out (it is been over 2 weeks). Take pain medicine as needed. Given narcotic instruction sheet. Take nausea medicine as needed Turn to the emergency room for worsening pain, fever (temperature greater than 100.5) or any concerns he getting worse. Prescriptions: Hydromorphone HCl [Dilaudid 2 Mg Tablet] 2 mg PO Q6H PRN #30 tablet PRN Reason: for pain Promethazine HCl [Phenergan 25 mg Tablet] 25 mg PO Q6H PRN #15 tablet PRN Reason: Sulfamethoxazole/Trimethoprim [Bactrim Ds Tablet] 1 each PO BID #14 tablet Referrals: YONG VALENZUELA MD [ACTIVE STAFF] - Follow up as needed (As we discussed: Call the urology office for an appointment with Dr. All Crespo.)
[2016-03-16] MEDS ORDERED: KETOROLAC TROMETHAMINE INJ/PF 30 MG/1 ML SDV IV ONE (12:18)
[2016-03-16] MEDS ORDERED: DIPHENHYDRAMINE HCL 50 MG/ML VIAL IV ONE (12:18)
[2016-03-16] MEDS ORDERED: METOCLOPRAMIDE HCL INJ/PF 10 MG/2 ML SDV IV ONE (12:18)
[2016-03-16] MEDS ORDERED: CEFTRIAXONE 1 GM/D5W RTU 50 ML IV ONE (15:48)
[2016-03-16 17:15] VITALS: BP 115/69
== END 2016-03-16 17:18 | disposition home or self-care (01) ==
LOC: ER 10:37
DX: R10.9 Unspecified abdominal pain (principal); Z87.442 Personal history of urinary calculi; Z88.6 Allergy status to analgesic agent; Z48.02 Encounter for removal of sutures
CPT/HCPCS: 96376; 99284; 96361; 96375; 96365; 36415; 87086; 85025; 87088; 80053; 81001; 87186; 74000; 76770; J1200; J1885; J2765; J1170; J7030; J0696

== ENCOUNTER 2016-03-19 13:21 | Day surgery (SDC) | payer MEDICAID ==
[~2016-03-19 13:21] MED LIST: CEFAZOLIN SODIUM 1 GM in DEXTROSE 5%-WATER 50 ML IV PRN
[2016-03-19] MEDS ORDERED: HYDROMORPHONE HCL INJ/PF 2 MG/ML AMPULE ONE (14:46)
[2016-03-19] MEDS ORDERED: MIDAZOLAM 2 MG/2 ML INJ ONE (14:50)
[2016-03-19] MEDS ORDERED: FENTANYL CITRATE INJ/PF 100 MCG/2 ML AMPUL ONE (14:50)
[2016-03-19] MEDS ORDERED: PROPOFOL INJ 200 MG/20 ML VIAL IV ONE (14:50)
[2016-03-19] MEDS ORDERED: ONDANSETRON HCL INJ/PF 4 MG/2 ML SDV ONE (16:16)
[2016-03-19] MEDS ORDERED: LIDOCAINE 2% INJ-PF (20 MG/ML) 10 ML AMPUL ONE (16:16)
[2016-03-19] MEDS ORDERED: DEXAMETHASONE SOD PHOSPHATE INJ 4 MG/1 ML VIAL ONE (16:16)
[2016-03-19] MEDS ORDERED: SUCCINYLCHOLINE CHLORIDE INJ 200 MG/10 ML VIAL ONE (16:16)
[2016-03-19] MEDS ORDERED: KETOROLAC TROMETHAMINE INJ/PF 30 MG/1 ML SDV ONE (16:37)
[2016-03-19] MEDS ORDERED: ONDANSETRON HCL INJ/PF 4 MG/2 ML SDV IV PRN (16:45)
[2016-03-19] MEDS ORDERED: KETOROLAC TROMETHAMINE INJ/PF 30 MG/1 ML SDV IV PRN (16:45)
[2016-03-19] MEDS ORDERED: PHENAZOPYRIDINE HCL 100 MG TABLET PO PRN ×2 (17:15)
[2016-03-19 17:36] VITALS: BP 115/74
--- NOTE | 2016-04-24 10:32 | Operative Report ---
Operative Report DATE OF SURGERY: 03/19/16 PREOPERATIVE DIAGNOSIS: L ureteral calculus POSTOPERATIVE DIAGNOSIS: Same OPERATION: 1) L ureteral stent removal. 2) L urerteroscopic laser lithotripsy with basket extraction stone fragments SURGEON: STEPHY HERNANDES ANESTHESIA: GA ESTIMATED BLOOD LOSS: 0 INTRAOPERATIVE FINDINGS: As above PROCEDURE: Patient was brought to the OR and was placed on the cysto table in supine postion, followed by induction of general anesthesia. She was then placed in the dorsal lithotomy position, where the skin of the lower abd, genitalia and upper thighs was prepared with betadine scrub followed by painting with betadine solution. The area was draped in sterile fashion. The cystoscope was advanced per urethra into the bladder, where the previously placed ureteral stent was identified and removed with a stent grasper. A 7fr rigid ureteroscope was then advanced into the bladder and then on into the L distaal ureter over a 0.035 guidewire. the scope was advanced on up to the level of stone found to be impactd in the distal ureter. The guidwire was removed and a 365 micron holmium laser fiber was advanced via the scope to the level of the stone. The stone was then xsequentially fragmented into basket extractabale and/or passable fragments at a power setting of 10watts. The fiber was removed, and a Goss basket was used to extract larger fragments, leaving very small fragments ot pass spontaneously. The ureteroscope and basket were removed, the bladder was drained with a cysto sheath, and the procedure was completed. She was awakend, extubated and transported to the recovery room in good condition.
== END 2016-03-19 17:35 | disposition home or self-care (01) ==
LOC: OROUT 13:21
PROVIDERS: ATTEND Urology
PROC: 0TC78ZZ Extirpation of Matter from Left Ureter, Via Natural or Artificial Opening Endoscopic (ICD-10-PCS; principal; 2016-03-19 15:00)
DX: N13.2 Hydronephrosis with renal and ureteral calculous obstruction (principal); M19.90 Unspecified osteoarthritis, unspecified site; Z79.899 Other long term (current) drug therapy; Z88.6 Allergy status to analgesic agent; Z79.891 Long term (current) use of opiate analgesic
CPT/HCPCS: 81025; 52353; C1769; Q9967; J2250; J0690; J1100; J3010; J1885; J1170; J3490 ×2; J0330; J2405; J2704; 918